=== PATIENT | male | born 1965 | race Caucasian/White ===

== ENCOUNTER → 2017-02-27 | Day surgery (SDC) | payer MEDICARE ==
[~2017-02-27] MED LIST: AMLODIPINE BESY10 MG PO; ASPIRIN81 M1 PO; ATORVASTATIN CA40 M1 PO; CARVEDILOL12.5 MG PO; LISINOPRIL40 MG PO; ZESTRIL10 MG PO
--- NOTE | ~2017-02-27 | PROC NOTE ---
[place], [place] PROCEDURE NOTE NAME: [facility] #: [id number] UNIT #: [id number] ROOM: DOCTOR: BALTAZAR BARBOZA MD BIRTHDATE: [birth year] DOS: 02/27/2017 PREOPERATIVE DIAGNOSIS: Upper back sebaceous cyst. POSTOPERATIVE DIAGNOSIS: Upper back sebaceous cyst. PROCEDURE: Excision of upper back sebaceous cyst. SURGEON: Baltazar Barboza M.D. GAMEPLAY ENGINEER: MS3. ANESTHESIA: Local. INDICATIONS: This is a 51-year-old gentleman with a history of growing sebaceous cyst on his upper back, who is here for the above-mentioned procedure. The procedure and its complications were explained to the patient in detail preoperatively. Complications that were discussed included, but were not limited to bleeding, infection, hematoma/seroma/abscess formation, prolonged postoperative pain and damage to underlying vital structures. He agreed to proceed. DESCRIPTION OF PROCEDURE: After identifying the patient, the patient was brought to the operating suite and laid in left lateral position. After the incision was marked, the parts were painted and draped in the usual sterile fashion and a timeout procedure was called incision. The marked incision was infiltrated with 1% plain lidocaine. An incision was made in an elliptical fashion. The cyst was then excised in its entirety with the help of blunt and sharp dissection and sent for histopathological diagnosis. Hemostasis was achieved with the help of electrocautery. Thereafter, saline was used for irrigation. The subcutaneous tissue was then approximated with the help of 3-0 Vicryl in a running fashion and the skin edges were approximated with the help of 4-0 Vicryl in a subcuticular running fashion. Dressing was placed. The patient tolerated the procedure well and was taken to the recovery room in a stable fashion. There were no complications. Dr. Baltazar Barboza, the attending surgeon, was present throughout the operating case. Baltazar Barboza MD CM:PROCNOTE:PROCEDURE NOTE [id number] BALTAZAR ABRBOZA MD
[2017-02-27 09:33] VITALS: BP 127/74
[2017-02-27 09:45] VITALS: BP 131/90
[2017-02-27 10:00] VITALS: BP 117/85
[2017-02-27 10:15] VITALS: BP 120/91
[2017-02-27 10:30] VITALS: BP 122/90
== END | disposition home or self-care (01) ==
LOC: SDC 02-24 13:15
DX: L72.0 Epidermal cyst (principal); I10 Essential (primary) hypertension; J44.9 Chronic obstructive pulmonary disease, unspecified; Z86.73 Personal history of transient ischemic attack (TIA), and cerebral infarction without residual deficits; F17.210 Nicotine dependence, cigarettes, uncomplicated; Z98.890 Other specified postprocedural states; Z88.0 Allergy status to penicillin; Z82.49 Family history of ischemic heart disease and other diseases of the circulatory system